=== PATIENT | female | born 1980 | race Caucasian/White ===

== ENCOUNTER → 2016-07-15 | Outpatient (CLI) | payer OTHER | LOC: FIMAGING 13:51 | PROVIDERS: ATTEND Obstetrics & Gynecology | DX: O09.523 Supervision of elderly multigravida, third trimester (principal); Z3A.35 35 weeks gestation of pregnancy ==

== ENCOUNTER 2016-08-19 17:37 | Inpatient (IN) | payer OTHER ==
[2016-08-19] MEDS ORDERED: LR 1,000 ML IV PRN (18:27)
[2016-08-19] MEDS ORDERED: EPSOM SALT 454 GM TP PRN (18:27)
[2016-08-19] MEDS ORDERED: TERBUTALINE SULFATE 1 MG/ML VIAL IV PRN (18:27)
[2016-08-19] MEDS ORDERED: OLIVE OIL 118 ML BTL MISC PRN (18:27)
[2016-08-19] MEDS ORDERED: LIDOCAINE 1% 30 ML SDV SC PRN (18:27)
[2016-08-19] MEDS ORDERED: OXYTOCIN/RINGERS LACTATE 1,000 ML IV PRN (18:27)
[2016-08-19] MEDS ORDERED: diphenhydrAMINE 25 MG CAP PO PRN (18:31)
[2016-08-19] MEDS ORDERED: CALCIUM CARBONATE 500 MG CHEWABLE TAB PO PRN (18:31)
[2016-08-19] MEDS ORDERED: ACETAMINOPHEN 325 MG TAB PO PRN (18:31)
[2016-08-19] MEDS ORDERED: LIDOCAINE 1% 30 ML SDV ONE (18:46)
[2016-08-19] MEDS ORDERED: AMMONIA AROMATIC 1 EACH AMP IH ONE (18:46)
[2016-08-19] MEDS ORDERED: OLIVE OIL 118 ML BTL ONE (18:46)
[2016-08-19] MEDS ORDERED: TERBUTALINE SULFATE 1 MG/ML VIAL ONE (18:46)
[2016-08-19] MEDS ORDERED: MISOPROSTOL 200 MCG TAB ONE (18:47)
[2016-08-19] MEDS ORDERED: OXYTOCIN 10 UNIT/ML VIAL ONE (18:47)
[2016-08-20] MEDS ORDERED: OXYTOCIN/LR *STANDARD DOSE PROTOCOL IV SCH (05:00)
[2016-08-20 05:56] LABS: % IMMATURE GRANULYOCYTES 0.5 % (0.0-1.1); ABSOLUTE IMMATURE GRANULOCYTES 0.04 10^3/uL (0.00-0.10); ADD DIFF? NO; ADD MORPH? NO; ADD SCAN? NO; ATYPICAL LYMPHOCYTE FLAG 0 (0-99); FRAGMENT RBC FLAG 0 (0-99); HEMATOCRIT 34.1 % (38.0-47.0); HEMOGLOBIN 11.9 g/dL (12.6-16.3); LEFT SHIFT FLG 10 (0-99); LIPEMIA HEMOLYSIS FLAG 90 (0-99); MEAN CELL HEMOGLOBIN 32.5 pg (27.9-34.1); MEAN CELL HEMOGLOBIN CONCENTR. 34.9 g/dL (32.4-36.7); MEAN CELL VOLUME 93.2 fL (81.5-99.8); MEAN PLATELET VOLUME 8.8 fL (8.7-11.7); PLATELET CLUMPS FLAG 20 (0-99); PLATELET COUNT 176 10^3/uL (150-400); RED BLOOD CELL COUNT 3.66 10^6/uL (4.18-5.33)
--- NOTE | 2016-08-20 09:25 | OBPROG ---
OBG Progress Note Assessment/Plan: Assessment: 36 y/o at 40+6 weeks EGA admitted for IOL for postdates Plan: 1) status reassuring 2) Labor IOL: [place] bulb out, s/p AROM with clear fluid noted, will continue pitocin 3) GBS neg 4) Pain, no issues, may have CARLOS when desired 08/20/16 09:24 Subjective: Pt comfortable, doing well w/ contractions Objective: 08/20/16 05:25 Patient ABO/Rh A POSITIVE 08/20/16 05:25 - SVE Dilation (cm): 5 Effacement (%): 50 Station: -2 Current Contraction Pattern: Regular FHR (bpm): 125 FHR Pattern Variability: Moderate FHR Category: 1 Membranes: AROM Amniotic Fluid Color: Clear ICD10 Worksheet Patient Problems: Problems Problem Status Onset Post-dates Acute - ICD10 Problem Qualifiers (1) Post-dates Qualifiers: Post-term type: P
[2016-08-20] MEDS ORDERED: fentaNYL 2MCG/ML/BUP 0.1% RTU 100 ML BAG EP ONE (12:07)
[2016-08-20] MEDS ORDERED: BUPIVACAINE 0.25% 30 ML SDV ONE (12:08)
[2016-08-20] MEDS ORDERED: PHENYLEPHRINE HCL 100 MCG/ML SYR ONE (12:08)
[2016-08-20] MEDS ORDERED: fentaNYL 100 MCG/2 ML INJ ONE ×2 (12:09→12:17)
--- NOTE | 2016-08-20 13:24 | OBPROG ---
OBG Progress Note Assessment/Plan: Assessment: 36 y/o at 40+6 weeks EGA admitted for IOL for postdates Plan: 1) status reassuring 2) Labor IOL: Progressing very well, CX 8-9cm/90/+1. 3) GBS neg 4) Pain: CARLOS working well 08/20/16 13:23 Subjective: Pt comfortable with her CARLOS in place. Objective: 08/20/16 05:25 Patient ABO/Rh A POSITIVE 08/20/16 05:25 - SVE Dilation (cm): 9 Effacement (%): 90 Station: +1 Current Contraction Pattern: Regular FHR (bpm): 120 FHR Pattern Variability: Moderate FHR Category: 1 Amniotic Fluid Color: Clear ICD10 Worksheet Patient Problems: Problems Problem Status Onset Post-dates Acute - ICD10 Problem Qualifiers (1) Post-dates Qualifiers: Post-term type: P
[2016-08-20] MEDS ORDERED: LIDOCAINE 2% JELLY 5 ML TUBE ONE (13:31)
[2016-08-20] MEDS ORDERED: PHENYLEPHRINE HCL 100 MCG/ML SYR IVP PRN (14:48)
[2016-08-20] MEDS ORDERED: ONDANSETRON 4 MG/2 ML VIAL IVP PRN (14:48)
[2016-08-20] MEDS ORDERED: LR 500 ML IV SCH (15:00)
[2016-08-20] MEDS ORDERED: fentaNYL 2MCG/ML/BUP 0.1% RTU 100 ML EP SCH (15:00)
--- NOTE | 2016-08-20 15:10 | PREANESOB ---
Obstetric Pre-Anesthesia Info - General Info Proposed Procedure: Labor and delivery with pitocin. : 3 Para: 0 WBD: 41 - Info Status: Postmature Monitors: External FHR Baseline (bpm): 130 FHR Pattern: Reassuring - Labor Status Cervical Dilation per last OB SVE: 5, 9 Station per last OB SVE: +1 Amniotic Fluid Color: Clear Pitocin: In Use Indications for Labor Analgesia: Induction of Labor, Pain Control (Post dates and suspected LGA.) Labor Epidural: Proposed Anesthesia ROS: History of anorexia. Past tonsillectomy. Allergies/Adverse Reactions: Allergy/AdvReac Type Severity Reaction Status Date / Time No Known Allergies Allergy Unverified 08/19/16 17:47 Home Medications: Medication Instructions Recorded Folic Acid [Folic Acid 1 MG (*)] 1 tab PO DAILY 08/19/16 Magnesium Amino Acid Chelate 1 tab PO DAILY 08/19/16 [Magnesium] Vit27&Calcium/Iron/FA 1 tab PO DAILY 08/19/16 [] Visit Medications: Generic Name Dose Route Start Last Admin Trade Name Freq PRN Reason Stop Dose Admin Acetaminophen 650 mg 08/19/16 18:31 Tylenol PO 02/15/17 18:30 Q4 PRN Pain, Mild/Fever, Can Take PO Calcium Carbonate 1,000 mg 08/19/16 18:31 Tums PO 02/15/17 18:30 Q4H PRN HEARTBURN Diphenhydramine HCl 25 mg 08/19/16 18:31 08/19/16 20:08 Benadryl PO 02/15/17 18:30 25 mg HS PRN Administration INSOMNIA Lactated Ringer's 1,000 mls @ 0 mls/hr 08/19/16 18:27 08/20/16 05:34 Lr IV 02/15/17 18:26 1,000 mls PRN PRN Administration SEE PROTOCOL CONDITIONS Protocol Per Protocol Oxytocin/Lactated Ringer's 1,000 mls @ 150 mls/hr 08/19/16 18:27 Pitocin 20 Units/Lr (Premix) IV PRN PRN Post- bleeding Oxytocin/Lactated Ringer's 500 mls @ 0 mls/hr 08/20/16 05:00 08/20/16 05:32 Pitocin 30 Units/Lr (Premix) IV 02/16/17 04:59 500 mls CONT JUNIOR Administration Protocol Per Protocol Ibuprofen 600 mg 08/19/16 18:27 Motrin PO 02/15/17 18:26 Q6HRS PRN post , inflammation Lidocaine HCl 30 ml 08/19/16 18:27 Lidocaine Hcl 1% SC 02/15/17 18:26 ONCE PRN Episiotomy Magnesium Sulfate 454 gm 08/19/16 18:27 Epsom Salt TP 02/15/17 18:26 PRN PRN perineal discomfort [place] Oil 118 ml 08/19/16 18:27 Sweet Oil MISC 02/15/17 18:26 ONCE PRN preneal massage Terbutaline Sulfate 0.25 mg 08/19/16 18:27 Brethine IV 02/15/17 18:26 ONCE PRN Tachysystole Discontinued Medications Generic Name Dose Route Start Last Admin Trade Name Freq PRN Reason Stop Dose Admin Ammonia (Aromatic Spirit) Confirm 08/19/16 18:46 Ammonia Aromatic Administered 08/19/16 18:47 Dose 1 each IH .STK-MED ONE Bupivacaine HCl Confirm 08/20/16 12:08 Sensorcaine 0.25% Sdv Administered 08/20/16 12:09 Dose 30 ml .ROUTE .STK-MED ONE Ephedrine Sulfate Confirm 08/19/16 18:46 Ephedrine Sulfate Administered 08/19/16 18:47 Dose 50 mg .ROUTE .STK-MED ONE Fentanyl Confirm 08/20/16 12:09 Sublimaze Administered 08/20/16 12:10 Dose 100 mcg .ROUTE .STK-MED ONE Fentanyl Confirm 08/20/16 12:17 Sublimaze Administered 08/20/16 12:18 Dose 100 mcg .ROUTE .STK-MED ONE Fentanyl/Bupivacaine HCl Confirm 08/20/16 12:07 Fentanyl/Bupivacaine/Ns 2 Mcg/Ml 0.1% (Premix Administered 08/20/16 12:08 Dose 100 ml EP .STK-MED ONE Lidocaine Confirm 08/20/16 13:31 Lidocaine 2% Jelly Administered 08/20/16 13:32 Dose 5 [place] .ROUTE .STK-MED ONE Lidocaine HCl Confirm 08/19/16 18:46 Lidocaine Hcl 1% Administered 08/19/16 18:47 Dose 30 ml .ROUTE .STK-MED ONE Misoprostol Confirm 08/19/16 18:47 Cytotec Administered 08/19/16 18:48 Dose 800 mcg .ROUTE .STK-MED ONE [place] Oil Confirm 08/19/16 18:46 Sweet Oil Administered 08/19/16 18:47 Dose 118 ml .ROUTE .STK-MED ONE Oxytocin Confirm 08/19/16 18:47 Pitocin Administered 08/19/16 18:48 Dose 40 unit .ROUTE .STK-MED ONE Phenylephrine HCl Confirm 08/20/16 12:08 Veto-Synephrine Administered 08/20/16 12:09 Dose 1,000 mcg .ROUTE .STK-MED ONE Terbutaline Sulfate Confirm 08/19/16 18:46 Brethine Administered 08/19/16 18:47 Dose 1 mg .ROUTE .STK-MED ONE - Anesthesia History Response to Local Anesthetics: Normal Anesthesia & Operative History: No Prior Problems - Social History Substance Use/Abuse: Denies - Focused Exam Blood Pressure: 113/66 Heart Rate: 86 Respiratory Rate: 22 Height/Weight (Nursing): Height 175.26 cm Physical Exam: Within normal limits. ASA Status: II Labs: 08/20/16 05:25 Patient ABO/Rh A POSITIVE 08/20/16 05:25 - Plan Anesthetic Plan: CSE Consent Signed and on Chart: Yes Patient/Guardian Understands and Agrees to Plan: Yes
--- NOTE | 2016-08-20 16:51 | POSTANESTH ---
Post Anesthetic Evaluation Cardiovascular Status: Normal, Stable, Similar to Pre-Op Cond (Tolerated CSE well, stable, comfortable.) Respiratory Status: Normal, Stable, Similar to Pre-op Cond. Level of Consciousness/Mental Status: Can Participate in Eval, Alert and Oriented Pain Control: Adequate, Prn Tx Ordered Nausea/Vomiting Control: Adequate, Prn Tx Ordered Complications Possibly Related to Anesthesia: None Noted
--- NOTE | 2016-08-20 18:39 | OBPROG ---
OBG Progress Note Assessment/Plan: Assessment: 36 y/o at 40+6 weeks EGA admitted for IOL for postdates Plan: 1) status reassuring 2) Labor IOL: C/C/+2, will start pushing 3) GBS neg 4) Pain: CARLOS working well 08/20/16 18:39 Subjective: Pt feeling pressure, no complaints Objective: 08/20/16 05:25 Patient ABO/Rh A POSITIVE 08/20/16 05:25 Temp Pulse Resp BP Pulse Ox 86 22 H 113/66 08/20/16 17:02 08/20/16 17:02 08/20/16 17:02 - SVE Dilation (cm): 10 Effacement (%): 100 Station: +2 Current Contraction Pattern: Regular FHR (bpm): 150 FHR Pattern Variability: Moderate FHR Category: 1 ICD10 Worksheet Patient Problems: Problems Problem Status Onset Post-dates Acute - ICD10 Problem Qualifiers (1) Post-dates Qualifiers: Post-term type: P
[2016-08-20] MEDS ORDERED: METHYLERGONOVINE MAL 0.2 MG/ML INJ ONE (19:09)
[2016-08-20] MEDS ORDERED: ACETAMINOPHEN 325 MG TAB PO PRN (19:46)
[2016-08-20] MEDS ORDERED: HYDROCORTISONE 0.5% CREAM TP PRN (19:46)
[2016-08-20] MEDS ORDERED: SIMETHICONE 80 MG TAB CHEW PO PRN (19:46)
[2016-08-20] MEDS: IBUPROFEN 600 MG TAB PO PRN (19:47)
--- NOTE | 2016-08-20 19:50 | OBPROC ---
- Labor and Delivery Onset of Contractions Date: 08/20/16 Onset of Contractions Time: 10:30 Onset of Contractions Type: Induced Rupture of Membranes Date: 08/20/16 Rupture of Membranes Time: 09:18 Rupture of Membranes Type: Artificial Amniotic Fluid Color: Clear Dilation Complete Time: 17:54 Delivery Type: Spontaneous Placenta Delivery Date: 08/20/16 Placenta Delivery Time: 19:06 Episiotomy/Laceration: 2nd Degree, Other (Specify) (bilateral labial lacerations ) Repair: 2-0, 3-0, Vicryl EBL: 400 cc Complications: None, Uterine Atony, Other (Specify) (compound right arm) - Medications Labor Augmentation/Induction Meds Used: Pitocin Labor Augmentation/Induction Indication: Post Dates Anesthesia: Epidural - [place] Info Infant A Delivery Date: 08/20/16 Delivery Time: 19:02 Sex of Infant: Male Score (1 Min): 8 Score (5 Min): 9 (Patient pushed w/ excellent effort, delivered a male infant in BHUPINDER position, rotated to facing left (left shoulder anterior) and delivered. Baby placed on the maternal abdomen, cord clamped x 2 after 2 minutes, then cord blood obtained. Baby had an excellent cry at delivery. Placenta delivered and intact. Uterine atony noted w/ heavy bleeding; pitocin 30mU/500cc given IV and methergine 0.2mg IM. Then, tone improved. Cervix intact. Midline small 2nd degree noted, repaired with a crown stitch and hemostatic. Two small bilateral labial lacerations noted, repaired with interrupted 3-0 vicryl. All hemostatic. Baby and patient in stable and good condition.)
[2016-08-20] MEDS ORDERED: OXYTOCIN/RINGERS LACTATE 1,000 ML IV SCH (20:00)
[2016-08-20] MEDS ORDERED: METHYLERGONOVINE MAL 0.2 MG/ML INJ IM ONE (20:00)
[2016-08-21] MEDS: IBUPROFEN 600 MG TAB PO PRN ×4 (02:05→20:47)
[2016-08-21] MEDS: HYDROCODONE/APAP 5/325 TAB PO PRN ×2 (07:42→19:32)
[2016-08-21] MEDS: DOCUSATE SODIUM 100 MG CAP PO PRN ×2 (07:42→19:32)
[2016-08-21] MEDS ORDERED: BENZOCAINE UNIT DOSE SPRAY HURRICAINE MM PRN (09:01)
--- NOTE | 2016-08-21 09:04 | SOAPPROG ---
SOAP Progress Note Assessment/Plan: Assessment: PPD#1 s/p c/b uterine atony Hct appropriate today at 28.1 (starting = 34) Rh+, rub imm, s/p tdap and flu vax Plan: Routine pp care Hurricaine spray Epsom salts sitz bath Monitor HR today, if ongoing tachycardia or symptomatic anemia consider repeat Hct 08/21/16 09:02 08/21/16 09:04 08/21/16 09:04 Subjective: Minimal sleep, very tired. Still with perineal soreness, is able to void but tender. RN just did exam and said no hematoma so she declines another exam. Working on . No heavy bleeding. Objective: Vital Signs Temp Pulse Resp BP Pulse Ox 36.1 C 113 H 16 121/79 H 96 08/21/16 07:40 08/21/16 07:40 08/21/16 07:40 08/21/16 07:40 08/21/16 07:40 Laboratory Results 08/21/16 05:40 08/20/16 08/21/16 08/22/16 05:59 05:59 05:59 Output Total 400 Balance -400 Gen: NAD Resp: unlabored Breasts: soft Abd: soft, nontender, uterus firm below U Ext: no edema ICD10 Worksheet Patient Problems: Problems Problem Status Onset Post-dates Acute
[2016-08-22] MEDS: IBUPROFEN 600 MG TAB PO PRN ×2 (02:44→09:31)
[2016-08-22 08:21] VITALS: BP 103/71; PULSE 99; RESP 16; TEMP 97.2; O2SAT 93
--- NOTE | 2016-08-22 08:49 | OBGCSDC ---
General Delivery Information - General Info : 3 Para: 1 Abortions: 2 Delivery Date: 08/20/16 Delivery Time: 19:02 Delivery Physician/CNM: Violet Mendoza Admission Date: 08/19/16 Labs: Patient ABO/Rh A POSITIVE 08/20/16 05:25 Hct 28.1 % (38.0-47.0) L 08/21/16 05:40 - Info A Sex of Infant: Male Score (1 Min): 8 Score (5 Min): 9 (Patient pushed w/ excellent effort, delivered a male infant in BHUPINDER position, rotated to facing left (left shoulder anterior) and delivered. Baby placed on the maternal abdomen, cord clamped x 2 after 2 minutes, then cord blood obtained. Baby had an excellent cry at delivery. Placenta delivered and intact. Uterine atony noted w/ heavy bleeding; pitocin 30mU/500cc given IV and methergine 0.2mg IM. Then, tone improved. Cervix intact. Midline small 2nd degree noted, repaired with a crown stitch and hemostatic. Two small bilateral labial lacerations noted, repaired with interrupted 3-0 vicryl. All hemostatic. Baby and patient in stable and good condition.) Vaginal - Diagnosis IUP (Weeks): 40 6/7 Labor: Induced Rupture of Membranes Type: Artificial Amniotic Fluid Color: Clear Laceration: 2nd Degree Repair: 2-0, 3-0, Vicryl Complications: None, Uterine Atony, Other (Specify) (compound right arm) - Operations/Procedures Delivery Type: Spontaneous Procedures: Amniotomy Anesthesia: Epidural - Delivery EBL: 400 cc Anesthesia: Epidural Discharge Information - Discharge Information Discharge Medications: Ibuprofen, Vitamins, Vicodin Condition: Good Instruction/Follow Up: Six Weeks Discharge Physician/CNM: Rocío Shepherd Discharge Date: 08/22/16 Dictated: No
[2016-08-22] MEDS ORDERED: IRON POLYSAC/IRON HEME 28 MG TAB PO SCH (09:00)
[2016-08-22] MEDS: DOCUSATE SODIUM 100 MG CAP PO PRN (09:31)
== END 2016-08-22 12:25 | disposition home or self-care (01) | DRG 775 ==
LOC: FLD 17:37 → FOB 08-20 22:10
PROVIDERS: ADMIT Obstetrics & Gynecology; ATTEND Obstetrics & Gynecology
PROC: 10E0XZZ Delivery of Products of Conception, External Approach (ICD-10-PCS; principal; 2016-08-20)
PROC: 10907ZC Drainage of Amniotic Fluid, Therapeutic from Products of Conception, Via Natural or Artificial Opening (ICD-10-PCS; principal; 2016-08-20)
PROC: 0KQM0ZZ Repair Perineum Muscle, Open Approach (ICD-10-PCS; principal; 2016-08-20)
DX: O48.0 Post-term pregnancy (principal); O64.5XX0 Obstructed labor due to compound presentation, not applicable or unspecified; O62.2 Other uterine inertia; O70.1 Second degree perineal laceration during delivery; Z3A.40 40 weeks gestation of pregnancy; Z37.0 Single live birth
CPT/HCPCS: J2210; J2370; J2590; J3010; J3105